=== PATIENT | male | born 1970 | race Caucasian/White ===

== ENCOUNTER 2018-05-05 09:11 | Emergency (ER) | payer OTHER ==
[~2018-05-05] VITALS: Ht 170.2 cm; Wt 86.2 kg
== END 2018-05-05 17:53 | disposition designated cancer center or children's hospital (05) ==
LOC: ER 09:11
DX: G44.89 Other headache syndrome (principal); H53.8 Other visual disturbances; R42 Dizziness and giddiness
CPT/HCPCS: 70545

== ENCOUNTER 2020-11-21 08:54 | Outpatient (CLI) | payer OTHER | END 2020-11-21 08:57 | disposition home or self-care (01) | LOC: SONOGRAMA 08:54 | PROVIDERS: ATTEND Pathology Anatomic Pathology & Clinical Pathology | DX: R59.0 Localized enlarged lymph nodes (principal) ==